=== PATIENT | male | born 2000 | race Caucasian/White ===

== ENCOUNTER 2024-02-28 17:15 | Inpatient (IN) ==
--- OUTSIDE RECORDS SUMMARY | 2024-02-28 17:24 | External Medical Summary | Summary of Care ---
Author Name Unknown Organization [facility] Address [address] [place] [address] Phone [phone] Care Team Providers Care Tornado Chaser Name Role Phone Brittany Velasquez DO Primary Care Provider [phone] Encounter Details Date Type Department Care Team (Late st Contact Info) Description 02/25/2024 Orders Only Family Practice [facility] [address] [facility] [place] [address] Brittany Velasquez DO [address] [place] [address] Allergies No known active allergiesdocumented as of this encounter (statuses as of 02/25/2024) Medications No known medicationsdocumented as of this encounter (statuses as of 02/25/2024) Active Problems Problem Noted Date Diagnosed Date Mood disorder 07/21/2023 Family history of factor V Leiden mutation 01/16 Asperger's disorder 06/13/2004 Overview (01/17/2020): Borderline? [facility] eval in HS documented as of this encounter (statuses as of 02/25/2024) Resolved Problems Problem Noted Date Diagnosed Date Resolved Date Gender dysphoria in adult 08/06/2020 Acne 08/03/2013 07/11/2021 Sleep deficient 08/03/2013 01/17/2020 FAMILY HISTORY OF EYE PROBLEMS 05/19/2005 01/17/2020 Autism spectrum disorder 06/13/200403/2021 Overview (01/17/2020): Borderline? DEVELOPMENTAL ARTICULATION DISORDER 07/05/2003 09/27/2014 BENIGN LÁZARO SKIN FACE NEC 10/12/200209/2019 Well adult exam 05/06/1999 07/11/2021 Overview (08/06/2020): Had COVID vaccines. documented as of this encounter (statuses as of 02/25/2024) Immunizations Name Administration Dates Next Due COVID-19 mRNA, LNP-s, No Pre serve, 2-Dose Series (Moderna) 06/23/2020,05/26/2020 HPV Vaccine, 4-Valent 01/14/2012,08/19/2011,04/2011 Influenza Vaccine, Live, Int ranasal, Trivalent (Flumist) 11/15/2012,11/27/2011 Meningococcal Conjugate Vacc ine (Menactra/Menveo) 04/16/2010 Seasonal Influenza Vac., MDV , IM, 0.5 mL (Fluzone) 12/07/2013,11/18/2010,11/26/2009,12/21,01/07/2008,12/07/2007 Seasonal Influenza, PF, 6 M & above, IM , (FluLaval or Fluzone) 10/25/2022,10/26/2021,10/27/2020,10/28 TDAP (age 10 and older)(Boostrix) 01/17/2020 TDAP, Age 7 and older, IM (Adacel) 04/16/2010 Varicella Vaccine (Chicken Pox) 04/16/2010 documented as of this encounter Social History Tobacco Use Types Packs/Day Years Used Date Smoking Tobacco: Never Passive Smoke Exposure: Never Smokeless Tobacco: Never Alcohol Use Standard Drinks/Week Comments Yes 0 (1 standard drink = 0.6 oz pur e alcohol) rare. no binge. PHQ-2 Answer Date Recorded PHQ Adult Total Score 0 07/21/2023 Hunger Vital Sign Answer Date Recorded Within the past 12 months, y ou worried that your food would run out before you got the money to buy more. Never true 07/14/19 24 Within the past 12 months, t he food you bought just didn't last and you didn't have money to get more. Never true 07/14/2023 Childcare Answer Date Recorded Do you feel overwhelmed with taking care of a child, family member or friend? No 07/14/2023 Does your family need help f inding childcare? (Household - for ages 0-17 years) Not on file 07/14/2023 Clothing Answer Date Recorded Have you been unable to get clothing when it was really needed? No 07/14/2023 Is your family able to get c lothes or diapers when needed? (Household - for ages 0-17 years) Not on file 07/14/2023 Personal Safety Answer Date Recorded Do you feel unsafe or have concerns for your saf ety? No 07/14/2023 Do you have concerns for you r family's safety? (Household - for ages 0-17 years) Not on file 07/14/2023 Utilities Answer Date Recorded Do you have trouble paying y our heating, water, or electric bill? No 07/14/2023 Is your family able to pay t he heat, water, or electric bill? (Household - for ages 0-17 years) Not on file 07/14/2023 Does your family have access to good internet? (Household - for ages 0-17 years) Not on file 07/14/2023 Employment Status Answer Date Recorded Are you unemployed or without regular income? Ye s 07/14/2023 Does the household have a re gular source of income? (Household - for ages 0-17 years) Not on file 07/14/2023 Social Connections Answer Date Recorded How often do you feel lonely or isolated from those around you? Sometimes 07/14/2023 Financial Resource Strain Answer Date R ecorded Do you have any trouble payi ng for your medications, or do you think you might in the future? No 07/14/2023 Does your family have troubl e paying for medicine? (Household - for ages 0-17 years) Not on file 07/14/2023 Transportation Needs Answer Date Record ed READ ONLY Do you have troubl e getting a ride to medical visits or work? Never True 07/14/2023 Does your family have a hard time getting a ride to doctors visits? (Household - for ages 0-17 years) Not on file 07/14/2023 Has lack of transportation k ept you from medical appointments, meetings, work, or from getting things needed for daily living? Check all that apply. (Adult - for ages 18 years and over) Not on file 07/14/2023 Do you (or your family) have trouble finding or paying for a ride (transportation)? (Household - for ages 0-17 years) Not on file 07/14/2023 Housing Stability Answer Date Recorded Do you currently live in a s helter or have no steady place to sleep at night? No 07/14/2023 READ ONLY Do you think you a re at risk of becoming homeless? No 07/14/2023 Does your family worry about paying for your home or becoming homeless? (Household - for ages 0-17 years) Not on file 0 07/14/2023 Are you homeless or worried that you might be in the future? (Adult - for ages 18 years and over) Not on file Are you (or your family) angélica eless or worried that you might be in the future? (Household - for ages 0-17 years) Not on file Food Insecurity Answer Date Recorded Do you need food for this week? No 07/14/2023 Are you able to get enough f ood for your family? (Household - for ages 0-17 years) Not on file 07/14/2023 Does your family need food t his week? (Household - for ages 0-17 years) Not on file 07/14/2023 Do you always have enough fo od for your family? 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 Not on file Not on file Not on file documented as of this encounter Plan of Treatment Upcoming Encounters Date Type Department Care Team (Late st Contact Info) Description 03/30/2024 2:00 PM EST Office Visit Family Practice [facility] [address] [place] [address] Brittany Velasquez, [address] [place] [address] Health Maintenance Due Date Last Done Comments HIV Screening 2013 Hepatitis C Screening 2016 COVID-19 Vaccine ( season) 2023 06/23/2020, 05/26/2020 Influenza Vaccine (FLU shot) (#1) 2023 10/25/2022, 10/26/2021, 10/27/2020, Additional history exists Depression Screening 07/20/2024 07/21/2023 DTap/Tdap Vaccines (8 - Td or Tdap) 01/16/2030 01/17/2020, 04/16/2010, 06/13/2004, Additional history exists Hepatitis B Vaccine Completed 04/02/2000, 06/27/1999, 05/06/1999 MENINGOCOCCAL (MENACTRA/MENVEO) Aged Out 04/16/2010 No longer eligible based on patient's age to complete this topic HPV (Gardasil) Vaccine Completed 2, 08/19/2011, 06/12/2011 Pneumococcal Vaccine: Pediatrics (0 to 5 Years) and At-Risk Patients (6 to 18 Years and 19+ Years) Aged Out No longer eligib le based on patient's age to complete this topic documented as of this encounter Medical Devices Not on filedocumented as of this encounter Procedures Procedure Name Priority Date/Time Associated Diagnosis Comments CHEMISTRY-OUTSIDE Routine 02/08/2024 TSH Routine 02/08/2024 documented in this encounter Results * TSH (02/08/2024) TSH - OUTSIDE LAB 1.07 0.45 - 5.33 UIU/ML OUTSIDE LAB (SEE SCANNED REPORT) Blood Venous blood specimen / Unknown 02/08/2024 us History Per Patient LAB BLOOD ORDERABLES Final R esult OUTSIDE LAB (SEE SCANNED REPORT) * (ABNORMAL) CHEMISTRY-OUTSIDE (02/08/2024) Not all results display below - see scan for full detail OUTSIDE LAB (SEE SCANNED REPORT) Comment:FREE T4,GLUCOSE,LIPI C CREATININE OUTSIDE L AB (SEE SCANNED REPORT) EGFR OUTSIDE LA B (SEE SCANNED REPORT) POTASSIUM OUTSIDE LA B (SEE SCANNED REPORT) GLUCOSE 74 65 - 99 MG/DL OUTSIDE LAB (SEE SCANNED REPORT) HOURS FASTING OUTSID E LAB (SEE SCANNED REPORT) TRIGLYCERIDES-OUT SIDE LAB 42 <=150 MG/DL OUTSIDE LAB (SEE SCANNED REPORT) CHOLESTEROL-OUTSI DE LAB 119(A) 125 - 200 MG/DL OUTSIDE LAB (SEE SCANNED REPORT) HDL-OUTSIDE LAB 50 40 - 90 MG/DL OUTSIDE LAB (SEE SCANNED REPORT) CHOL/HDL RATIO-OUTSIDE LAB 2.38 RATIO OUTSIDE LA B (SEE SCANNED REPORT) LDL (CALCULATED)-OUTS JES LAB 58 <=130 MG/DL OUTSIDE LAB (SEE SCANNED REPORT) LDL (DIRECT MEASURE)-OUTSIDE LAB OUTSIDE LAB (SEE SCANNED REPORT) HEMOGLOBIN, [id number] LAB OUTSIDE LAB (SEE SCANNED REPORT) PHOSPHORUS-OUTSID E LAB OUTSIDE LAB (SEE SCANNED REPORT) PTH-OUTSIDE LAB OUTS JES LAB (SEE SCANNED REPORT) MICROALBUMIN RATIO-OUTSIDE LAB OUTSIDE LA B (SEE SCANNED REPORT) PROTEIN, UA-OUTSIDE LAB OUTSIDE LAB (SEE SCANNED REPORT) HGB OUTSIDE LA B (SEE SCANNED REPORT) 02/08/2024 us History Per Patient LABORATORY Final Result OUTSIDE LAB (SEE SCANNED REPORT) documented in this encounter Care Teams Tornado Chaser Relationship Specialty Start Date End Date Brittany Velasquez DO [address] [place] [address] PCP - General Family Medicine 08/22/23 documented as of this encounter
--- NOTE | 2024-02-28 17:40 | Emergency Department Note ---
Impression & Plan Drug overdose, intentional ADMIT ED Provider Note HPI: History obtained from patient and patient's mother at the bedside. The patient is a 23-year-old male with history of bipolar disorder, presents the emergency department after an intentional overdose on olanzapine and hydroxyzine. Patient states he took these medications between 2 AM and 4 AM as an attempt to get high. Patient states he was not suicidal. Patient states he took these medications in an attempt to "get high". Patient's mother states that she just learned that he took these medications about 1 hour ago. He did seem drowsy and lethargic throughout the morning she states. On arrival here to the ED the patient is alert but he is somewhat listless appearing, there is some delay with answers to my questions but they are appropriate answers. Patient is mildly tachycardic on arrival but otherwise hemodynamically stable and saturating well on room air. ROS: - Per HPI Differential Diagnosis: Anticholinergic syndrome, adverse reaction medications, alcohol intoxication, polysubstance abuse, acute psychosis, amongst other potential pathologies. *Outpatient medications and allergy history reviewed. 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 Initial EKG reviewed by myself shows normal sinus rhythm without any interval prolongation. Lab work shows no leukocytosis, hemoglobin is normal, platelet count is normal, CMP does not show any evidence of any critical findings, Tylenol and salicylate levels are negative, alcohol level is negative. Urinalysis is pending as well as UDS. Patient's presentation was discussed with poison control, they recommended supportive care at this time given the length of time since the patient's reported ingestion. He remains somewhat altered on my reassessment, mother request inpatient admission which I think is reasonable given his altered mentation and concern for possible anticholinergic syndrome from the antihistamines. I discussed the patient's presentation with the on-call hospitalist for [facility], Dr. Geiger, and the patient was placed for admission in stable condition. Mother was in agreement to this plan. Consultants/Discussions held with other healthcare providers: -Hospitalist, Dr. Geiger -Poison Control Center Disposition discussion held by myself with: -Patient's mother Diagnosis: 1. Altered mental status/lethargy, acute 2. Intentional drug overdose, acute 3. History of bipolar disorder Disposition: Admission Man Dejesus DO Emergency Medicine Past Med/Surg History Problem List (Updated 02/28/24 @ 23:12 by Man Dejesus DO) Drug overdose, intentional (Acute) Encounter for wound re-check (Acute) Medical History Marijuana abuse History of psychosis Social History Smoking Status: Current every day smoker Tobacco Type: E-cigarettes / Vaping Preferred Language: Nepali Feels Safe at Home: Yes Gender Identity: Male Allergies Allergies Allergy/AdvReac Type Severity Reaction Status Date / Time No Known Allergies Allergy Unverified 12/26/12 19:22 Home Meds Home Medications Medication Instructions Recorded Confirmed hydroxyzine HCl 25 mg tablet 25 mg PO TID PRN Anxiety 02/28/24 02/28/24 olanzapine 20 mg tablet 20 mg PO HS 02/28/24 02/28/24 Results & Data (ED) Vital Signs Vital Signs - 24 hr 02/28/24 17:16 02/28/24 17:16 02/28/24 17:18 Temperature 36.3 C L Temperature Source Oral Pulse Rate 126 H Pulse Rate [Apical] Respiratory Rate 18 Respiratory Effort / Characteristics Non-Labored Accessory Muscle Use Respiratory Depth Normal Respiratory Pattern Regular Blood Pressure 129/81 Blood Pressure [Right Arm] Blood Pressure Mean 97 Blood Pressure Mean [Right Arm] Blood Pressure Position [Right Arm] Pulse Oximetry 98 96 Oxygen Delivery Method Room Air Room Air Sepsis Recent Fever Within 48 Hours No Sepsis New/Unexplained Change in Mental Status No Sepsis Action Taken by Nursing No Action Required 02/28/24 17:47 02/28/24 19:16 02/28/24 21:00 Temperature Temperature Source Pulse Rate 95 H Pulse Rate [Apical] 78 82 Respiratory Rate 16 18 Respiratory Effort / Characteristics Non-Labored Spontaneous Non-Labored Spontaneous Respiratory Depth Respiratory Pattern Blood Pressure Blood Pressure [Right Arm] 105/71 116/77 Blood Pressure Mean Blood Pressure Mean [Right Arm] 82 90 Blood Pressure Position [Right Arm] Lying Lying Pulse Oximetry 95 98 Oxygen Delivery Method Room Air Room Air Sepsis Recent Fever Within 48 Hours Sepsis New/Unexplained Change in Mental Status Sepsis Action Taken by Nursing 02/28/24 21:40 02/28/24 22:31 Temperature Temperature Source Pulse Rate 82 Pulse Rate [Apical] 87 Respiratory Rate 20 Respiratory Effort / Characteristics Respiratory Depth Respiratory Pattern Blood Pressure Blood Pressure [Right Arm] 128/82 Blood Pressure Mean Blood Pressure Mean [Right Arm] 97 Blood Pressure Position [Right Arm] Pulse Oximetry 97 Oxygen Delivery Method Room Air Sepsis Recent Fever Within 48 Hours Sepsis New/Unexplained Change in Mental Status Sepsis Action Taken by Nursing Laboratory Data 02/28/24 17:45 02/28/24 17:45 Lab Results 02/28/24 02/28/24 Range/Units 17:45 17:53 WBC 9.10 (4.8-10.8) K/ul RBC 5.08 (4.70-6.10) M/uL Hgb 15.6 (14.0-18.0) g/dl POC Hgb 15.6 (14.0-18.0) g/dl Hct 45.5 (42.0-52.0) % POC Hct 46 (42-52) % MCV 89.6 (80.0-100.0) fL MCH 30.7 (25.0-34.0) pg MCHC 34.3 (32.0-36.0) g/dL RDW Std Deviation 41.5 (36.4-46.3) fL RDW Coeff of Marlin 12.7 (11.5-14.5) % Plt Count 226 (130-400) K/uL MPV 9.8 (9.4-12.4) fL Immature Gran % (Auto) 0.3 % Neut % (Auto) 83.3 % Lymph % (Auto) 8.0 % [place] % (Auto) 8.0 % Eos % (Auto) 0.2 % Baso % (Auto) 0.2 % Neut # (Auto) 7.57 H (1.40-6.50) K/uL Lymph # (Auto) 0.73 L (1.20-3.40) K/uL [place] # (Auto) 0.73 H (0.11-0.59) K/uL Eos # (Auto) 0.02 (0.00-0.50) K/uL Baso # (Auto) 0.02 (0.00-0.20) K/uL Immature Gran # (Auto) 0.03 (0.01-0.20) K/uL POC Sodium 143 (135-144) mmol/L Sodium 141 (136-145) mmol/L POC Potassium 4.2 (3.3-5.0) mmol/L Potassium 4.2 (3.5-5.1) mmol/L POC Chloride 108 (101-112) mmol/L Chloride 108 H (98-107) mmol/L Carbon Dioxide 25 (21-32) mmol/L POC Total CO2 23 L (24-31) mmol/L Anion Gap 8 (3-11) POC Anion Gap 17.0 (16-25) mmol/L POC BUN 12 (7-18) mg/dl BUN 13 (6-23) mg/dl Creatinine 0.79 (0.6-1.4) mg/dl POC Creatinine 0.8 (0.6-1.3) mg/dl Est Cr Clr Drug Dosing 152.2 ml/min eGFR 126.43 BUN/Creatinine Ratio 16.5 (10-20) Glucose 113 H (70-99(Fasting)) mg/dl POC Glucose (other) 115 H (70-99) mg/dl Calcium 9.5 (8.6-10.3) mg/dl POC Ioniz Calcium Livier 1.15 (1.12-1.32) mmol/l Total Bilirubin 1.0 (0.2-1.0) mg/dl AST 30 (13-39) U/L ALT 123 H (7-52) U/L Alkaline Phosphatase 60 (34-104) U/L Total Protein 7.5 (6.0-8.3) gm/dl Albumin 5.0 (3.4-5.0) gm/dl Globulin 2.5 (2.5-4.0) gm/dl Albumin/Globulin Ratio 2.0 (0.9-2) TSH 2.111 (0.300-4.500) uIu/ml Salicylates < 3.0 L (3.0-30) mg/dl Acetaminophen < 3 L (10-30) ug/ml Ethyl Alcohol mg/dL < 10.0 (<10.0) mg/dl Discharge Plan Visit Data Chief Complaint: Overdose (Intentional) Stated Complaint: ATTEMPTED OVERDOSE LAST NIGHT ED Provider: Man Dejesus Discharge Problem: Drug overdose, intentional Forms Stand Alone Forms: My [facility], Suicide Prevention Resources Prescriptions Prescriptions: No Action hydroxyzine HCl 25 mg tablet 25 mg PO TID PRN (Reason: Anxiety) olanzapine 20 mg tablet 20 mg PO HS Referrals Referrals: PCP,NO [Physician] - Discharge Problem: Drug overdose, intentional Qualifiers: Encounter type: initial encounter Qualified Code(s): T50.902A - Poisoning by unspecified drugs, medicaments and biological substances, intentional self-harm, initial encounter
[2024-02-28 18:05] LABS: Basophils # (auto) 0.02 K/uL (0.00-0.20); Basophils % (auto) 0.2 %; Eosinophils # (auto) 0.02 K/uL (0.00-0.50); Eosinophils % (auto) 0.2 %; Hematocrit (blood only) 45.5 % (42.0-52.0); Hemoglobin 15.6 g/dl (14.0-18.0); Immature Granulocytes # (auto) 0.03 K/uL (0.01-0.20); Immature Granulocytes % (auto) 0.3 %; Lymphocytes # (auto) 0.73 K/uL (1.20-3.40); Mean Corpuscular Hemoglobin 30.7 pg (25.0-34.0); Mean Corpuscular Hgb Conc 34.3 g/dL (32.0-36.0); Mean Corpuscular Volume 89.6 fL (80.0-100.0); Mean Platelet Volume 9.8 fL (9.4-12.4); Monocytes # (auto) 0.73 K/uL (0.11-0.59); Neutrophils # (auto) 7.57 K/uL (1.40-6.50); Neutrophils % (auto) 83.3 %; Platelet Count 226 K/uL (130-400); RDW Coefficient of Variation 12.7 % (11.5-14.5); RDW Standard Deviation 41.5 fL (36.4-46.3); Red Blood Count 5.08 M/uL (4.70-6.10)
[2024-02-28 18:06] LABS: iSTAT Creatinine 0.8 mg/dl (0.6-1.3); iSTAT Hemoglobin 15.6 g/dl (14.0-18.0); iSTAT Ionized Calcium 1.15 mmol/l (1.12-1.32); iSTAT Potassium 4.2 mmol/L (3.3-5.0)
[2024-02-28 18:20] LABS: Acetaminophen < 3 ug/ml (10-30); Salicylate < 3.0 mg/dl (3.0-30)
[2024-02-28 18:23] LABS: BUN Creatinine Ratio 16.5 (10-20); Calcium 9.5 mg/dl (8.6-10.3); Creatinine Clr Calc Pharmacy 152.2 ml/min; Globulin 2.5 gm/dl (2.5-4.0); Potassium 4.2 mmol/L (3.5-5.1); Total Protein 7.5 gm/dl (6.0-8.3)
[2024-02-28 18:37] LABS: Thyroid Stimulating Hormone 2.111 uIu/ml (0.300-4.500)
--- NOTE | 2024-02-28 22:28 | History & Physical Report ---
Date of Service February 28, 2024 Assessment & Plan (1) Drug overdose, intentional: Plan: 23-year-old male with past medical history significant for Asperger's disorder, mood disorder, family history of factor V Leiden mutation, was brought in because of intentional drug overdose of olanzapine and hydroxyzine. Patient has history of psychosis. Patient was in the ER on 01/27/2024 with psychosis and was transferred to [facility]. As per mother after coming from [facility] he did not take the medications that were prescribed. Was again in the ER on 02/06/2024 with psychosis and was transferred to [place] inpatient psychiatry. He was discharged on Thursday as per mother. Patient has his own apartment. But since discharge he is living with his mother. As per mother after coming home he did not take his prescribed medications. And patient seemed back to his usual self per mother. Today morning between 2 AM and 4 AM patient took olanzapine and hydroxyzine to get high. As per mother, counting the tablets in the bottles she thinks he took 28 tablets of hydroxyzine and 15 tablets of olanzapine. Patient told the mother that he took extra pills and so she brought him to the hospital. Patient is drowsy. Arousable. Can tell his name. Knows that he is in the [facility]. He says he took the medications to get high. Mother thinks his psychosis started after he started vaping. [place] She thinks substance he uses in vaping is causing his psychosis. Patient was diagnosed with bipolar disorder but Mother doubts he is bipolar, thinks vaping is the issue. Mother says that her sister has bipolar and she was placed on same medication which helped her but same medication is not helping her son. Mother says patient was almost 2 weeks in [facility] and the medication did not help him and she thinks the current meds are making things worse for him. When he came home he was not taking the prescribed medications and he seemed to be back to his usual self. Mother says the patient's main issues is he thinks that Secret service took him and changed his body. Patient's says he does not like his name. After coming home patient was eating okay. There was no recent fevers. Mother thinks today he might have vomited. No recent diarrhea. No complains of any pain until now, today after taking pills he is complaining of leg pains. Currently hemodynamics are okay. ER talked with poison control and was advised for observation. As per mother he was vaping all day yesterday. And he drank 1 beer today. Usually drinks 1 or 2 beers couple of times a week per mother. Drug overdose, intentional Overdosed on olanzapine and hydroxyzine to get high Seems took 28 tablets of hydroxyzine and 15 tablets of olanzapine as per mother EKG is okay. No QT prolongation Labs are okay. ALT 123 Hemodynamics are okay. TSH is okay. Salicylates less than 3. Acetaminophen less than 3. Alcohol less than 10 Patient still drowsy Observe on telemetry Follow repeat EKG Follow repeat labs One-on-one IV fluids, n.p.o. for now Psychiatry consult in a.m. Close monitor Psychosis/bipolar Hold home meds for now Psychiatry consult in a.m. DVT prophylaxis SCDs Disposition Telemetry Full code. History of Present Illness Chief Complaint: Intentional drug overdose Primary Care Provider: Rigo Condon MD 23-year-old male with past medical history significant for Asperger's disorder, mood disorder, family history of factor V Leiden mutation, was brought in because of intentional drug overdose of olanzapine and hydroxyzine. Patient has history of psychosis. Patient was in the ER on 01/27/2024 with psychosis and was transferred to [facility]. As per mother after coming from [facility] he did not take the medications that were prescribed. Was again in the ER on 02/06/2024 with psychosis and was transferred to [place] inpatient psychiat[facility]. He was discharged on Thursday as per mother. Patient has his own apartment. But since discharge he is living with his mother. As per mother after coming home he did not take his prescribed medications. And patient seemed back to his usual self per mother. Today morning between 2 AM and 4 AM patient took olanzapine and hydroxyzine to get high. As per mother, counting the tablets in the bottles she thinks he took 28 tablets of hydroxyzine and 15 tablets of olanzapine. Patient told the mother that he took extra pills and so she brought him to the hospital. Patient is drowsy. Arousable. Can tell his name. Knows that he is in the [facility]. He says he took the medications to get high. Mother thinks his psychosis started after he started vaping. [place] She thinks substance he uses in vaping is causing his psychosis. Patient was diagnosed with bipolar disorder but Mother doubts he is bipolar, thinks vaping is the issue. Mother says that her sister has bipolar and she was placed on same medication which helped her but same medication is not helping her son. Mother says patient was almost 2 weeks in [facility] and the medication did not help him and she thinks the current meds are making things worse for him. When he came home he was not taking the prescribed medications and he seemed to be back to his usual self. Mother says the patient's main issues is he thinks that Secret service took him and changed his body. Patient's says he does not like his name. After coming home patient was eating okay. There was no recent fevers. Mother thinks today he might have vomited. No recent diarrhea. No complains of any pain until now, today after taking pills he is complaining of leg pains. Currently hemodynamics are okay. ER talked with poison control and was advised for observation. As per mother he was vaping all day yesterday. And he drank 1 beer today. Usually drinks 1 or 2 beers couple of times a week per mother. Past medical history. As mentioned above Past surgical history. No surgery. Vasectomy. Social history. Vapes. Drinks alcohol 1 or 2 beers couple of times a week as per mother. No other drugs per mother. Family history. Mother has anxiety disorder. Multiple sclerosis. DVT. Hypothyroidism. Low vitamin D. Pancreas divisum. Father had pulmonary embolism. Factor V Leiden mutation. Maternal grandmother had breast cancer. Paternal grandmother had diabetes. Maternal grandfather hypertension. Stroke. Aneurysm. Paternal grandfather had factor V Leiden mutation. Paternal uncle had factor V Leiden mutation. Allergies Allergy/AdvReac Type Severity Reaction Status Date / Time No Known Allergies Allergy Unverified 12/26/12 19:22 Home Medications Medication Instructions Recorded Confirmed Type hydroxyzine HCl 25 mg tablet 25 mg PO TID PRN Anxiety 02/28/24 02/28/24 History olanzapine 20 mg tablet 20 mg PO HS 02/28/24 02/28/24 History Past Med/Surg History Problem List (Updated 02/28/24 @ 23:12 by Man Dejesus DO) Drug overdose, intentional (Acute) Encounter for wound re-check (Acute) Medical History Marijuana abuse History of psychosis Social History Smoking Status: Current every day smoker Tobacco Type: E-cigarettes / Vaping Second Hand Exposure: No; Do You Dip or Chew Tobacco: No; Tobacco Cessation Education Requested by Patient: No Hx Alcohol Use: No Hx Substance Use: Yes Last Used Substance: Just Prior to Arrival Preferred Language: [place] Islander Communication Ability: Effective 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 Head- atraumatic Eyes- Pupils equal and round and sow to react to light ENT- oropharynx dry Neck- supple, no JVD. Lungs- clear to auscultation no wheezing or crackles. Heart- regular rate and rhythm; no murmur, no gallop. Abdomen- normal bowel sounds, soft, nontender, no distension Extremities- no pretibial edema, no erythema seen Neuro- Drowsy but arousable can tell his name and knows he is in hospital; no facial palsy; no dysarthria; obeys simple commands moves extremities Results & Data Results & Data Vital Signs (Past 12 Hours) Vital Signs Temp Pulse Pulse Resp BP BP Pulse Ox 02/28/24 21:40 82 02/28/24 21:00 82 18 116/77 98 02/28/24 19:16 78 16 105/71 95 02/28/24 17:47 95 H 02/28/24 17:18 36.3 C L 126 H 18 129/81 96 02/28/24 17:16 98 02/28/24 17:16 O2 Del Method 02/28/24 21:40 02/28/24 21:00 Room Air 02/28/24 19:16 Room Air 02/28/24 17:47 02/28/24 17:18 Room Air 02/28/24 17:16 02/28/24 17:16 Room Air Diagnostic Findings Laboratory Results WBC 9.10 K/ul (4.8-10.8) 02/28/24 17:45 RBC 5.08 M/uL (4.70-6.10) 02/28/24 17:45 Hgb 15.6 g/dl (14.0-18.0) 02/28/24 17:45 POC Hgb 15.6 g/dl (14.0-18.0) 02/28/24 17:53 Hct 45.5 % (42.0-52.0) 02/28/24 17:45 POC Hct 46 % (42-52) 02/28/24 17:53 MCV 89.6 fL (80.0-100.0) 02/28/24 17:45 MCH 30.7 pg (25.0-34.0) 02/28/24 17:45 MCHC 34.3 g/dL (32.0-36.0) 02/28/24 17:45 RDW Std Deviation 41.5 fL (36.4-46.3) 02/28/24 17:45 RDW Coeff of Marlin 12.7 % (11.5-14.5) 02/28/24 17:45 Plt Count 226 K/uL (130-400) 02/28/24 17:45 MPV 9.8 fL (9.4-12.4) 02/28/24 17:45 Immature Gran % (Auto) 0.3 % 02/28/24 17:45 Neut % (Auto) 83.3 % 02/28/24 17:45 Lymph % (Auto) 8.0 % 02/28/24 17:45 Sterling % (Auto) 8.0 % 02/28/24 17:45 Eos % (Auto) 0.2 % 02/28/24 17:45 Baso % (Auto) 0.2 % 02/28/24 17:45 Neut # (Auto) 7.57 K/uL (1.40-6.50) H 02/28/24 17:45 Lymph # (Auto) 0.73 K/uL (1.20-3.40) L 02/28/24 17:45 Sterling # (Auto) 0.73 K/uL (0.11-0.59) H 02/28/24 17:45 Eos # (Auto) 0.02 K/uL (0.00-0.50) 02/28/24 17:45 Baso # (Auto) 0.02 K/uL (0.00-0.20) 02/28/24 17:45 Immature Gran # (Auto) 0.03 K/uL (0.01-0.20) 02/28/24 17:45 POC Sodium 143 mmol/L (135-144) 02/28/24 17:53 Sodium 141 mmol/L (136-145) 02/28/24 17:45 POC Potassium 4.2 mmol/L (3.3-5.0) 02/28/24 17:53 Potassium 4.2 mmol/L (3.5-5.1) 02/28/24 17:45 POC Chloride 108 mmol/L (101-112) 02/28/24 17:53 Chloride 108 mmol/L (98-107) H 02/28/24 17:45 Carbon Dioxide 25 mmol/L (21-32) 02/28/24 17:45 POC Total CO2 23 mmol/L (24-31) L 02/28/24 17:53 Anion Gap 8 (3-11) 02/28/24 17:45 POC Anion Gap 17.0 mmol/L (16-25) 02/28/24 17:53 POC BUN 12 mg/dl (7-18) 02/28/24 17:53 BUN 13 mg/dl (6-23) 02/28/24 17:45 Creatinine 0.79 mg/dl (0.6-1.4) 02/28/24 17:45 POC Creatinine 0.8 mg/dl (0.6-1.3) 02/28/24 17:53 Est Cr Clr Drug Dosing 152.2 ml/min 02/28/24 17:45 eGFR 126.43 02/28/24 17:45 BUN/Creatinine Ratio 16.5 (10-20) 02/28/24 17:45 Glucose 113 mg/dl (70-99(Fasting)) H 02/28/24 17:45 POC Glucose (other) 115 mg/dl (70-99) H 02/28/24 17:53 Calcium 9.5 mg/dl (8.6-10.3) 02/28/24 17:45 POC Ioniz Calcium Livier 1.15 mmol/l (1.12-1.32) 02/28/24 17:53 Total Bilirubin 1.0 mg/dl (0.2-1.0) 02/28/24 17:45 AST 30 U/L (13-39) 02/28/24 17:45 ALT 123 U/L (7-52) H 02/28/24 17:45 Alkaline Phosphatase 60 U/L (34-104) 02/28/24 17:45 Total Protein 7.5 gm/dl (6.0-8.3) 02/28/24 17:45 Albumin 5.0 gm/dl (3.4-5.0) 02/28/24 17:45 Globulin 2.5 gm/dl (2.5-4.0) 02/28/24 17:45 Albumin/Globulin Ratio 2.0 (0.9-2) 02/28/24 17:45 TSH 2.111 uIu/ml (0.300-4.500) 02/28/24 17:45 Salicylates < 3.0 mg/dl (3.0-30) L 02/28/24 17:45 Acetaminophen < 3 ug/ml (10-30) L 02/28/24 17:45 Ethyl Alcohol mg/dL < 10.0 mg/dl (<10.0) 02/28/24 17:45 ECG Additional Comments: ECG. Normal sinus rhythm rate of 96. No acute ST changes seen. QTc 444. Code Status & VTE Plan VTE Prophylaxis Plan VTE Prophylaxis will be ordered: Yes
[2024-02-28 23:56] LABS: Appearance Urine Clear (Clear); Bilirubin Urine Negative (Negative); Blood Urine Negative (Negative); Color Urine Yellow; Glucose Urine UA Negative (Negative); Ketones Urine Negative (Negative); Leukocyte Esterase Urine Negative (Negative); Nitrite Urine Negative (Negative); Protein Urine Negative (Negative); Specific Gravity Urine 1.017 (1.000-1.030); Urobilinogen Urine Negative (Negative)
[2024-02-29 00:48] LABS: Amphetamines+Metham, Urine Neg (Neg); Barbiturates, Urine Neg (Neg); Benzodiazepine, Urine Neg (Neg); Cocaine, Urine Neg (Neg); Fentanyl, Urine Neg (Neg); MDMA (Ecstacy), Urine Neg (Neg); Marijuana, Urine Pos (Neg); Methadone, Urine Neg (Neg); Opiate, Urine Neg (Neg); Phencyclidine, Urine Neg (Neg)
[2024-02-29] MEDS: SODIUM CHLORIDE 0.9% 1,000 ML IV SCH (06:00)
[2024-02-29 06:53] LABS: Basophils # (auto) 0.04 K/uL (0.00-0.20); Basophils % (auto) 0.6 %; Hematocrit (blood only) 43.3 % (42.0-52.0); Immature Granulocytes # (auto) 0.02 K/uL (0.01-0.20); Immature Granulocytes % (auto) 0.3 %; Lymphocytes # (auto) 1.43 K/uL (1.20-3.40); Lymphocytes % (auto) 21.5 %; Mean Corpuscular Hemoglobin 30.9 pg (25.0-34.0); Mean Corpuscular Hgb Conc 34.6 g/dL (32.0-36.0); Mean Corpuscular Volume 89.1 fL (80.0-100.0); Mean Platelet Volume 9.6 fL (9.4-12.4); Monocytes # (auto) 0.73 K/uL (0.11-0.59); Neutrophils # (auto) 4.24 K/uL (1.40-6.50); Neutrophils % (auto) 63.6 %; Platelet Count 206 K/uL (130-400); RDW Coefficient of Variation 12.9 % (11.5-14.5); RDW Standard Deviation 41.9 fL (36.4-46.3); Red Blood Count 4.86 M/uL (4.70-6.10); White Blood Count 6.66 K/ul (4.8-10.8)
[2024-02-29 07:18] LABS: Troponin I High Sensitivity 2.6 pg/ml (0-20)
[2024-02-29 07:56] LABS: BUN Creatinine Ratio 18.7 (10-20); Calcium 9.4 mg/dl (8.6-10.3); Creatinine Clr Calc Pharmacy 132.2 ml/min; Magnesium 2.1 mg/dl (1.7-2.4); Potassium 4.1 mmol/L (3.5-5.1)
--- NOTE | 2024-02-29 08:37 | Hospitalist Progress Note ---
Date of Service February 29, 2024 Assessment & Plan (1) Drug overdose, intentional: Plan: 23-year-old male with past medical history significant for Asperger's disorder, mood disorder, family history of factor V Leiden mutation, was brought in because of intentional drug overdose of olanzapine and hydroxyzine. Patient has history of psychosis. Patient was in the ER on 01/27/2024 with psychosis and was transferred to [facility]. As per mother after coming from [facility] he did not take the medications that were prescribed. Was again in the ER on 02/06/2024 with psychosis and was transferred to [place] inpatient psychiatry. He was discharged on Thursday as per mother and has not been taking his home meds On the day of presentation (between 2 AM and 4 AM) patient took about 15 tabs olanzapine and 28 tabs of hydroxyzine to get high. Drug overdose, intentional Overdosed on olanzapine and hydroxyzine to get high Seems took 28 tablets of hydroxyzine and 15 tablets of olanzapine as per mother Labs are okay. ALT 123 TSH is normal Continue to monitor EKG for QTc Patient was reported to be drowsy/lethargic since yesterday but AOx3 now and asking for food Diet ordered Continue to monitor on tele Awaiting Psych eval Psychosis/bipolar Hold home meds for now DVT prophylaxis SCDs Disposition Telemetry Full code I spent a total of 50 minutes coordinating, documenting and providing care for this patient excluding time spent in performance of separately billed services Admission and Anticipated Discharge Date Admission Date: February 28, 2024 Subjective Patient seen and examined He is currently AOx3 Reported he had taken the meds to get a 'high' and not to kill himself Denied suicidal ideation or feeling depressed at this time Took most of his olanzapine and hydroxyzine Denied any other complaints Physical Exam Constitutional: + well hydrated; no acute distress Eyes: PERRL, conjunctivae normal, anicteric sclerae ENMT: external ear and nose normal, oropharynx normal Respiratory: normal respiratory effort, lungs clear to auscultation Cardiovascular: Rate/Rhythm: regular rate and regular rhythm Gastrointestinal (Abdomen): normal bowel sounds, soft, nontender, no hepatosplenomegaly Musculoskeletal: No pedal edema Neurologic: PERRL, EOMI, accommodation nl, no face palsy, no dysarthria Psychiatric: AOx3 Results & Data Results & Data Vital Signs (Past 12 Hours) Vital Signs Temp Pulse Pulse Resp BP BP Pulse Ox 02/29/24 07:39 89 02/29/24 07:26 36.8 C 71 18 108/69 96 02/29/24 05:56 79 18 110/73 98 02/29/24 05:34 73 18 100 02/29/24 05:30 73 18 110/73 97 02/29/24 05:09 76 17 97 02/29/24 05:00 111/72 02/29/24 04:30 74 20 124/67 97 02/29/24 04:06 81 15 97 02/29/24 04:00 126/86 02/29/24 03:36 02/29/24 03:27 75 19 95 02/29/24 03:00 78 20 114/72 95 02/29/24 03:00 79 18 114/72 95 02/29/24 02:00 79 16 112/70 95 02/29/24 01:46 78 02/29/24 00:00 81 16 115/85 96 02/28/24 23:21 87 16 99 02/28/24 23:12 81 16 96 02/28/24 23:00 117/77 02/28/24 22:48 85 16 97 02/28/24 22:42 81 22 97 02/28/24 22:33 96 H 15 97 02/28/24 22:32 128/82 02/28/24 22:32 128/82 02/28/24 22:31 87 20 128/82 97 02/28/24 22:10 133/84 02/28/24 22:10 133/84 02/28/24 22:10 133/84 02/28/24 22:09 15 98 02/28/24 22:00 90 27 H 98 02/28/24 22:00 137/101 H 02/28/24 22:00 137/101 H 02/28/24 21:51 90 15 98 02/28/24 21:50 125/83 02/28/24 21:50 125/83 02/28/24 21:50 125/83 02/28/24 21:50 125/83 02/28/24 21:42 80 23 95 02/28/24 21:40 130/86 02/28/24 21:40 130/86 02/28/24 21:40 130/86 02/28/24 21:40 82 02/28/24 21:36 76 16 96 02/28/24 21:33 85 17 96 02/28/24 21:30 140/90 02/28/24 21:00 82 18 116/77 98 Pulse Ox O2 Del Method O2 Del Method 02/29/24 07:39 02/29/24 07:26 Room Air 02/29/24 05:56 Room Air 02/29/24 05:34 Room Air 02/29/24 05:30 Room Air 02/29/24 05:09 02/29/24 05:00 02/29/24 04:30 02/29/24 04:06 02/29/24 04:00 02/29/24 03:36 96 Room Air 02/29/24 03:27 02/29/24 03:00 02/29/24 03:00 Room Air 02/29/24 02:00 Room Air 02/29/24 01:46 02/29/24 00:00 Room Air 02/28/24 23:21 02/28/24 23:12 02/28/24 23:00 02/28/24 22:48 02/28/24 22:42 02/28/24 22:33 02/28/24 22:32 02/28/24 22:32 02/28/24 22:31 Room Air 02/28/24 22:10 02/28/24 22:10 02/28/24 22:10 02/28/24 22:09 02/28/24 22:00 02/28/24 22:00 02/28/24 22:00 02/28/24 21:51 02/28/24 21:50 02/28/24 21:50 02/28/24 21:50 02/28/24 21:50 02/28/24 21:42 02/28/24 21:40 02/28/24 21:40 02/28/24 21:40 02/28/24 21:40 02/28/24 21:36 02/28/24 21:33 02/28/24 21:30 02/28/24 21:00 Room Air Laboratory Results Abnormal lab results 02/28/24 02/28/24 02/28/24 Range/Units 17:45 17:53 23:40 Neut # (Auto) 7.57 H (1.40-6.50) K/uL Lymph # (Auto) 0.73 L (1.20-3.40) K/uL Lincoln # (Auto) 0.73 H (0.11-0.59) K/uL Chloride 108 H (98-107) mmol/L POC Total CO2 23 L (24-31) mmol/L Glucose 113 H (70-99(Fasting)) mg/dl POC Glucose (other) 115 H (70-99) mg/dl ALT 123 H (7-52) U/L Salicylates < 3.0 L (3.0-30) mg/dl Acetaminophen < 3 L (10-30) ug/ml U Marijuana (THC) Screen Pos H (Neg) 02/29/24 Range/Units 06:35 Neut # (Auto) (1.40-6.50) K/uL Lymph # (Auto) (1.20-3.40) K/uL Lincoln # (Auto) 0.73 H (0.11-0.59) K/uL Chloride 109 H (98-107) mmol/L POC Total CO2 (24-31) mmol/L Glucose (70-99(Fasting)) mg/dl POC Glucose (other) (70-99) mg/dl ALT (7-52) U/L Salicylates (3.0-30) mg/dl Acetaminophen (10-30) ug/ml U Marijuana (THC) Screen (Neg) (1) Drug overdose, intentional Encounter type: initial encounter Qualified Code(s): T50.902A - Poisoning by unspecified drugs, medicaments and biological substances, intentional self-harm, initial encounter
--- NOTE | 2024-02-29 14:41 | Psychiatric Consultation ---
Date of Consultation February 29, 2024 Impression / Recommendations Impression Diagnostically it seems overdose was driven by polysubstance use disorder and impulsivity. Convincingly and adamantly denies this was a suicide attempt. Acute risk is low given denial of SI, future-oriented, no evidence for depressive episode. Unclear if due to recent medication non-adherence that she is developing more psychosis but no overt evidence for this nor paranoia during interview (did decline ROIs earlier with liason but agreed to sign for me for recent hospitalization records); hypomania also possible as speech is fairly rapid and reports poor sleep but also without any overt delusions nor grandiosity nor hypersexual themes nor any evidence for psychomotor activation. At times individuals with ASD can also present with gender dysphoria/fluidity so unclear if changing names and pronoun preferences is due to psychosis/disorganization/hypomania vs 2/2 ASD and gender exploration. At this time inpatient psychiatric hospitalization recommended once medically stable but suspect she won't meet 302 criteria unless additional acute symptoms arise to level of safety concerns to self or others or starts shows symptoms to level of impairing ability to function. Discussed recommendation for substance use treatment which she is not interested in nor deems as necessary. Overall, I spent a total of 60 minutes with this case including review of chart records, review of labwork, direct evaluation of the patient at bedside, counseling the patient, discussion of the patient with the Nurse and with the hospitalist provider, discussion with the psychiatric liason during clinical rounds, review of collateral historian information from the family and documentation in the electronic health record. (1) Drug overdose, intentional: Encounter type: initial encounter Qualified Code(s): T50.902A - Poisoning by unspecified drugs, medicaments and biological substances, intentional self-harm, initial encounter Plan -No psychiatric medications at this time given overdose, once medically stable and pending normal QTc consider risperidone 1mg BID po -For behavioral emergency would use: ativan 1mg IM or IV -Does not require suicide precautions -would consider continuing 1-on-1 given history of impulsivity and some ongoing uncertainty about possible disorganization/psychosis as currently minimizing any recent symptoms Psych History Identifying Data 23 yo individual with a history of ASD, mood disorder, family history of factor V Leiden mutation, substance use, was brought in because of intentional drug overdose of olanzapine and hydroxyzine. Psychiatry consulted for intentional overdose. Chief Complaint "I basically took all the meds to get high but I didn't research it enough, I didn't see how bad it could be, I could have ". History of Present Illness Keshav prefers she/her pronouns and reports thinking about various names including "maybe Cyndy". Earlier told psych liason possibly Hannah. She presented after intentional overdose of olanzapine and Vistaril which she reports was an effort to "get high". Regrets this as didn't realize it could be so harmful and is glad to be alive. Adamantly denies suicide and denies this was a suicide attempt. Reports often using substances, such as in this case, to "get high" to "expand my my mind and integrate new with the old". Asked to expand describes that "we figure out how to fix it and get better" and to "get all this knowledge at once-memory, spiritual". Typically vapes shrooms and last delta 8 use about one month ago. Feels that substances help with "focus and concentration, I'm more studious". Denies psychosis nor hallucinations. Denies concerns about any implanted devices nor being targeted by police or secret service, etc. Does report concerns about father and references example of father's past behavior as due to showing her a book about a dog "used to use that picture book to mess with me". Denies any history of jaswinder but does report periods of poor sleep. Currently a student at [employer]. Allergies Allergy/AdvReac Type Severity Reaction Status Date / Time No Known Allergies Allergy Unverified 12/26/12 19:22 Home Medications Medication Instructions Recorded Confirmed Type hydroxyzine HCl 25 mg tablet 25 mg PO TID PRN Anxiety 02/28/24 02/28/24 History olanzapine 20 mg tablet 20 mg PO HS 02/28/24 02/28/24 History Patient History Medical History Marijuana abuse History of psychosis Social History Smoking Status: Current every day smoker Tobacco Type: E-cigarettes / Vaping Second Hand Exposure: No; Do You Dip or Chew Tobacco: No; Tobacco Cessation Education Requested by Patient: No Hx Alcohol Use: Yes Alcohol type: beer Hx Substance Use: Yes Last Used Substance: Just Prior to Arrival Preferred Language: [place]er Communication Ability: Effective Winder Hand Required: No Beliefs That Will Affect Care: None Current Living Situation: Parent Other Information That Helps Us Care for You: No Feels Safe at Home: Yes Safety Concerns: Feels Safe At This Time Gender Identity: Male Physical Exam Vital Signs (Past 24 Hours): Last Vital Signs Temp 36.8 C 02/29/24 11:15 Pulse 98 H 02/29/24 11:15 Resp 18 02/29/24 11:15 BP 125/77 02/29/24 11:15 Pulse Ox 97 02/29/24 11:15 O2 Del Method Room Air 02/29/24 11:15 Results & Data (PSY) Medications Administered Sodium Chloride (Nss) 1,000 mls @ 100 mls/hr IV .Q10H MILO Stop: 02/29/24 22:15 Last Infusion: 02/29/24 10:46 Dose: 100 mls/hr Documented By: Admin: 02/29/24 06:00 Dose: 125 mls/hr Documented By: DALTON Coding Level of Care Code 89117 IN/OBS CONSULT LVL 4,60M Diagnoses Drug overdose, intentional T50.902A Encounter type: initial encounter
[2024-02-29] MEDS ORDERED: LORazepam 2 MG/1 ML VIAL IV PRN (14:57)
--- NOTE | 2024-02-29 15:00 | Electrocardiogram Report ---
Test Reason : Blood Pressure : */* mmHG Vent. Rate : 85 BPM Atrial Rate : 85 BPM P-R Int : 126 ms QRS Dur : 88 ms QT Int : 382 ms P-R-T Axes : 86 86 61 degrees QTcB Int : 454 ms Normal sinus rhythm Normal ECG When compared with ECG of 28-Feb-2024 17:39, (unconfirmed) Nonspecific T wave abnormality now evident in Lateral leads Confirmed by Carrillo Thomas ([id number]) on 02/29/2024 3:00:01 PM Referred By: REFERRED SELF Confirmed By: Carrillo Thomas
--- NOTE | 2024-02-29 15:12 | Electrocardiogram Report ---
Test Reason : Blood Pressure : */* mmHG Vent. Rate : 96 BPM Atrial Rate : 96 BPM P-R Int : 124 ms QRS Dur : 86 ms QT Int : 352 ms P-R-T Axes : 67 45 27 degrees QTcB Int : 444 ms Normal sinus rhythm Normal ECG No previous ECGs available Confirmed by Carrillo Thomas ([id number]) on 02/29/2024 3:11:59 PM Referred By: REFERRED SELF Confirmed By: Carrillo Thomas
[2024-03-01 06:21] LABS: Hematocrit (blood only) 42.1 % (42.0-52.0); Hemoglobin 14.5 g/dl (14.0-18.0); Mean Corpuscular Hemoglobin 30.8 pg (25.0-34.0); Mean Corpuscular Hgb Conc 34.4 g/dL (32.0-36.0); Mean Corpuscular Volume 89.4 fL (80.0-100.0); Mean Platelet Volume 9.8 fL (9.4-12.4); Platelet Count 213 K/uL (130-400); RDW Coefficient of Variation 12.3 % (11.5-14.5); RDW Standard Deviation 40.7 fL (36.4-46.3); Red Blood Count 4.71 M/uL (4.70-6.10); White Blood Count 6.59 K/ul (4.8-10.8)
[2024-03-01 06:28] LABS: Albumin Level 4.3 gm/dl (3.4-5.0); BUN Creatinine Ratio 22.1 (10-20); Bilirubin,Total 1.3 mg/dl (0.2-1.0); Creatinine Clr Calc Pharmacy 139.8 ml/min; Globulin 2.1 gm/dl (2.5-4.0); Potassium 3.8 mmol/L (3.5-5.1); Total Protein 6.4 gm/dl (6.0-8.3)
[2024-03-01 08:35] VITALS: RESP 16; TEMP 97.7; O2SAT 99
--- NOTE | 2024-03-01 12:00 | Psychiatric Progress Note ---
Date of Service March 01, 2024 Impression / Recommendations Impression Diagnostically it seems overdose was driven by polysubstance use disorder and impulsivity. Convincingly and adamantly denies this was a suicide attempt. Acute risk is low given denial of SI, future-oriented, no evidence for depressive episode. A: Medically stable, slept overnight with exception of one awakening at 3am but was back to sleep by 4am. No evidence for psychosis nor jaswinder nor depression on exam today. He is future-oriented about classes and continues to deny SI. Continues to state that overdose of medications was in an attempt to get "high" due to his mother not permitting him to use his preferred substance of vaping. Acute risk of self-harm is low given denial of SI, future-oriented. Chronic risk is moderate given substance use and impulsivity. Counseled on ways to reduce chronic risk factors including avoidance of substances and establishing with outpatient mental health providers. He does not meet 302 criteria and declines repeatedly recommendation for voluntary inpatient psychiatry treatment. Declines option to restart a new psychiatric medication such as risperidone. Wants to avoid any psychiatric medications. Declines offers for outpatient psychiatry referral, prefers to see his PCP. Declines to sign MAISHA for PCP, states he will consider allowing records after he meets with her and knows to then contact medical records at the hospital or use portal to do so. Overall, I spent a total of 60 minutes with this case including review of chart records, review of labwork, review of EKG QTc, direct evaluation of the patient at bedside, counseling the patient, discussion of the patient with the hospitalist provider, discussion with the psychiatric liason during clinical rounds and documentation in the electronic health record. (1) Drug overdose, intentional: (2) Substance use disorder: Plan -Can be discharged, doesn't meet 302 criteria and is now medically stable per hospitalist -Discontinue olanzapine and Vistaril given misuse/overdose -Strongly encourage establishment with outpatient psychiatrist and therapist or dual diagnosis substance use treatment; they decline any referrals being made to help with this -Reviewed crisis resources Interval History Identifying Information 23 yo individual with a history of ASD, mood disorder, family history of factor V Leiden mutation, substance use, was brought in because of intentional drug overdose of olanzapine and hydroxyzine. Psychiatry consulted for intentional overdose. Chief Complaint "I want to get back to class". Subjective Subjective Patient was seen & assessed and interval progress reviewed. No overnight events. Reports positive mood. Willing to consider avoiding vape use, contemplative about this. Not interested in starting any new psychiatric medications. Denies SI, denies HI, denies AH and VH. No evidence for delusions. Reality-based about returning to classes and upcoming PCP appointment. Continues to deny overdose was a suicide attempt, wanted to "get high" after he wasn't allowed to vape in his parents house so decided to try his medication instead. Notes he will not ever do this again as the effects frightened him. Continues to decline further psychiatric treatment nor substance use treatment. Physical Exam Psychiatric Orientation: alert, oriented x 3 and cooperative Apperance: appropriately dressed and appropriately groomed Eye Contact: good eye contact Motor Behavior: no abnormal motor movements Speech: normal rate/rhythm/volume of speech Affect: euthymic affect Mood: no depressed mood, no anxious mood and no irritable mood Thought Process: goal directed thought process Thought Content: reality based without delusions Suicidal Thoughts: denies suicidal thoughts Homicidal Thoughts: denies homicidal thoughts Hallucinations: no auditory hallucinations and no visual hallucinations Insight: + limited insight Judgment: + limited judgement Vital Signs (Past 24 Hours) Last Vital Signs Temp 36.5 C 03/01/24 08:00 Pulse 77 03/01/24 08:00 Resp 16 03/01/24 08:00 BP 129/72 03/01/24 08:00 Pulse Ox 99 03/01/24 08:00 O2 Del Method Room Air 03/01/24 08:00 Results & Data ([facility]) Laboratory Results Laboratory Results - last 24 hr 03/01/24 05:39 WBC 6.59 RBC 4.71 Hgb 14.5 Hct 42.1 MCV 89.4 MCH 30.8 MCHC 34.4 RDW Std Deviation 40.7 RDW Coeff of Marlin 12.3 Plt Count 213 MPV 9.8 Sodium 141 Potassium 3.8 Chloride 110 H Carbon Dioxide 25 Anion Gap 6 BUN 19 Creatinine 0.86 Est Cr Clr Drug Dosing 139.8 eGFR 123.23 BUN/Creatinine Ratio 22.1 H Glucose 85 Calcium 9.0 Total Bilirubin 1.3 H AST 17 ALT 67 H Alkaline Phosphatase 52 Total Protein 6.4 Albumin 4.3 Globulin 2.1 L Albumin/Globulin Ratio 2.0 Current Inpatient Medications Current Inpatient Medications: Current Inpatient Medications Lorazepam (Lorazepam 2 Mg/1 Ml Vial) 1 mg IV BID PRN PRN Reason: Anxiety/Agitation Stop: 03/30/24 14:56 (1) Drug overdose, intentional Encounter type: initial encounter Qualified Code(s): T50.902A - Poisoning by unspecified drugs, medicaments and biological substances, intentional self-harm, initial encounter
--- NOTE | 2024-03-01 12:20 | Discharge Summary ---
Date of Service March 01, 2024 Admission HPI Per Admitting Provider 23-year-old male with past medical history significant for Asperger's disorder, mood disorder, family history of factor V Leiden mutation, was brought in because of intentional drug overdose of olanzapine and hydroxyzine. Patient has history of psychosis. Patient was in the ER on 01/27/2024 with psychosis and was transferred to [facility]. As per mother after coming from [facility] he did not take the medications that were prescribed. Was again in the ER on 02/06/2024 with psychosis and was transferred to [place] inpatient psychiatry. He was discharged on Thursday as per mother. Patient has his own apartment. But since discharge he is living with his mother. As per mother after coming home he did not take his prescribed medications. And patient seemed back to his usual self per mother. Today morning between 2 AM and 4 AM patient took olanzapine and hydroxyzine to get high. As per mother, counting the tablets in the bottles she thinks he took 28 tablets of hydroxyzine and 15 tablets of olanzapine. Patient told the mother that he took extra pills and so she brought him to the hospital. Patient is drowsy. Arousable. Can tell his name. Knows that he is in the [facility]. He says he took the medications to get high. Mother thinks his psychosis started after he started vaping. [place] She thinks substance he uses in vaping is causing his psychosis. Patient was diagnosed with bipolar disorder but Mother doubts he is bipolar, thinks vaping is the issue. Mother says that her sister has bipolar and she was placed on same medication which helped her but same medication is not helping her son. Mother says patient was almost 2 weeks in [facility] and the medication did not help him and she thinks the current meds are making things worse for him. When he came home he was not taking the prescribed medications and he seemed to be back to his usual self. Mother says the patient's main issues is he thinks that [employer] service took him and changed his body. Patient's says he does not like his name. After coming home patient was eating okay. There was no recent fevers. Mother thinks today he might have vomited. No recent diarrhea. No complains of any pain until now, today after taking pills he is complaining of leg pains. Currently hemodynamics are okay. ER talked with poison control and was advised for observation. As per mother he was vaping all day yesterday. And he drank 1 beer today. Usually drinks 1 or 2 beers couple of times a week per mother. Past medical history. As mentioned above Past surgical history. No surgery. Vasectomy. Social history. Vapes. Drinks alcohol 1 or 2 beers couple of times a week as per mother. No other drugs per mother. Family history. Mother has anxiety disorder. Multiple sclerosis. DVT. Hypothyroidism. Low vitamin D. Pancreas divisum. Father had pulmonary embolism. Factor V Leiden mutation. Maternal grandmother had breast cancer. Paternal grandmother had diabetes. Maternal grandfather hypertension. Stroke. Aneurysm. Paternal grandfather had factor V Leiden mutation. Paternal uncle had factor V Leiden mutation. Admission Exam Per Admitting Provider General- Drowsy. Head- atraumatic Eyes- Pupils equal and round and sow to react to light ENT- oropharynx dry Neck- supple, no JVD. Lungs- clear to auscultation no wheezing or crackles. Heart- regular rate and rhythm; no murmur, no gallop. Abdomen- normal bowel sounds, soft, nontender, no distension Extremities- no pretibial edema, no erythema seen Neuro- Drowsy but arousable can tell his name and knows he is in hospital; no facial palsy; no dysarthria; obeys simple commands moves extremities Principal Diagnosis Intentional drug overdose Discharge Exam Constitutional + well hydrated; no acute distress Eyes PERRL, conjunctivae normal, anicteric sclerae ENMT external ear and nose normal, oropharynx normal Respiratory normal respiratory effort, lungs clear to auscultation Cardiovascular Rate/Rhythm: regular rate and regular rhythm Gastrointestinal (Abdomen) normal bowel sounds, soft, nontender, no hepatosplenomegaly Musculoskeletal No pedal edema Neurologic PERRL, EOMI, accommodation nl, no face palsy, no dysarthria Psychiatric A+Ox3, euthymic affect Discharge Data Allergies Allergy/AdvReac Type Severity Reaction Status Date / Time No Known Allergies Allergy Unverified 12/26/12 19:22 Consultations 02/28/24 20:11 ED Decision to Admit Stat 02/29/24 08:00 Consult Psychiatry Routine Hospital Course (1) Drug overdose, intentional: 23-year-old male with past medical history significant for Asperger's disorder, mood disorder, family history of factor V Leiden mutation, was brought in because of intentional drug overdose of olanzapine and hydroxyzine. Patient has history of psychosis. Patient was in the ER on 01/27/2024 with psychosis and was transferred to [facility]. As per mother after coming from [facility] he did not take the medications that were prescribed. Was again in the ER on 02/06/2024 with psychosis and was transferred to [place] inpatient psychiatry. He was discharged on Thursday as per mother and has not been taking his home meds On the day of presentation (between 2 AM and 4 AM) patient took about 15 tabs olanzapine and 28 tabs of hydroxyzine to get high. Drug overdose, intentional Overdosed on olanzapine and hydroxyzine to get high Seems took 28 tablets of hydroxyzine and 15 tablets of olanzapine as per mother Patient was monitored inpatient Patient is medically cleared today He was seen by Psychiatry who determined he does not meet criteria for 302 and recommended inpatient psychiatry treatment However patient declined I explained to him the need to follow up with PCP and Psychiatry I discussed with Psychiatrist today who recommends discontinuing the home meds for now Total Time Total Time Spent Total Time Spent (In Minutes): 50 Total Time Includes: Examination of the Patient, Discharge Planning, Medication Reconciliation and Communication With Other Providers Discharge Plan Discharge Items Patient Disposition: Transfer Behavioral Health Fac Reason For Visit: DRUG OVERDOSE, INTENTIONAL Discharge Diagnosis: Intentional drug overdose Activity: Resume your previous activity Non-emergency contact: Primary Care Provider and Psychiatrist Call non-emergency contact if: you have any medication questions and your symptoms worsen Follow-up/Referrals: [facility] [Other] (Contact [employer] [facility] to provide documentation regarding hospitalization. They can offer support to navigate missed classes/assignments ) [facility] [Outside] (If unable to obtain therapist or need support while awaiting appointment, call [facility] for assistance ) Brittany Velasquez DO [Outside Practitioners] - (Date & Time 03/04/2024 11:00 AM Provider: Lupis oYung CRNP [facility] ) Diet: Regular Addtl Attending Provider Instructions: You were hospitalized for intentional drug overdose Please ensure follow up with your Primary Doctor and Psychiatry It was a pleasure taking care of you Pending Studies at Discharge: No Stand-Alone Forms: My [facility] Medications and DC Order Prescriptions: Discontinued hydroxyzine HCl 25 mg tablet 25 mg PO TID PRN (Reason: Anxiety) olanzapine 20 mg tablet 20 mg PO HS Discharge Orders: Discharge Order (Routine); Ordered 03/01/24 Ordered By: Cheryl Thacker Admission Data Admit Date/Time: 02/28/24 22:18 Attending Provider: Cheryl Thacker I. Admit Provider: Андрей Geiger Primary Care Provider: Rigo Condon Other Providers: Андрей Geiger; Luisana Albright; Demetris Eckert; Merle Corcoran; Kelli Berrios; Miguel Ángel Jacobsen; Denice Victoria; Dannielle Yang
[2024-03-01 12:25] VITALS: BP 121/76; PULSE 77
--- NOTE | 2024-03-01 14:02 | Electrocardiogram Report ---
Test Reason : Blood Pressure : */* mmHG Vent. Rate : 59 BPM Atrial Rate : 59 BPM P-R Int : 138 ms QRS Dur : 96 ms QT Int : 416 ms P-R-T Axes : 66 66 59 degrees QTcB Int : 411 ms Sinus bradycardia Otherwise normal ECG When compared with ECG of 29-Feb-2024 07:23, ST elevation now present in Anterior leads T wave inversion no longer evident in Anterior leads Confirmed by Carrillo Thomas ([id number] on 03/01/2024 2:02:13 PM Referred By: REFERRED SELF Confirmed By: Carrillo Thomas
[2024-03-02 12:13] LABS: Marijuana Quant, GCMS Urine 639 ng/mL (<5)
== END 2024-03-01 13:08 | disposition home or self-care (01) | DRG 918 ==
LOC: ED 17:15 → SUATTDRO 22:18 → EDINP 22:18 → 4W 02-29 10:25